=== PATIENT | female | born 1950 | race Two or more races ===

== ENCOUNTER 2023-02-23 08:22 | Inpatient (IN) | payer OTHER ==
[~2023-02-23] VITALS: Ht 157.5 cm; Wt 88.5 kg
[2023-02-24] MEDS ORDERED: MICARDIS80 MG PO (13:56)
[2023-02-24] MEDS ORDERED: FARXIGA10 MG PO (13:57)
[2023-02-24] MEDS ORDERED: SYNTHROID88 MCG PO (13:57)
[2023-02-24] MEDS ORDERED: GLUMETZA500 MG PO (13:57)
[2023-02-24] MEDS ORDERED: NORVASC5 MG PO (13:58)
[2023-02-24] MEDS ORDERED: CARDURA XL4 MG PO (13:58)
[2023-03-01 15:10] LABS: HEMATOCRIT 42.5 % (36.0-45.00); HEMOGLOBIN 13.8 g/dL (12.0-15.00); MEAN CELL VOLUME 79.4 fL (80.00-100.00); MEAN CORPUSCULAR HEMOGLOBIN 25.9 pg (27.00-32.0); MEAN CORPUSCULAR HGB CONC 32.6 g/dl (32.0-36.0); PLATELET COUNT 164 K/uL (150-450); RED BLOOD COUNT 5.35 M/uL (4.00-6.00); RED CELL DISTRIBUTION WIDTH 16.2 % (11.5-14.5)
[2023-03-01 15:25] LABS: ALBUMIN 3.8 gm/dL (3.4-5.0); CALCIUM 8.4 mg/dL (8.5-10.1); CREATININE SERUM 0.68 mg/dL (0.55-1.02); GFR 85.29; MAGNESIUM 2.3 mg/dL (1.8-2.4); PHOSPHOROUS 3.7 mg/dL (2.5-4.9); POTASSIUM 3.66 mEq/L (3.5-5.1)
[2023-03-02 06:23] LABS: HEMATOCRIT 38.2 % (36.0-45.00); HEMOGLOBIN 12.8 g/dL (12.0-15.00); MEAN CELL VOLUME 78.8 fL (80.00-100.00); MEAN CORPUSCULAR HEMOGLOBIN 26.4 pg (27.00-32.0); MEAN CORPUSCULAR HGB CONC 33.5 g/dl (32.0-36.0); PLATELET COUNT 149 K/uL (150-450); RED BLOOD COUNT 4.85 M/uL (4.00-6.00); RED CELL DISTRIBUTION WIDTH 16.2 % (11.5-14.5)
[2023-03-02 07:04] LABS: ALBUMIN 3.2 gm/dL (3.4-5.0); CREATININE SERUM 0.59 mg/dL (0.55-1.02); GFR 100.48; MAGNESIUM 2.3 mg/dL (1.8-2.4); PHOSPHOROUS 2.7 mg/dL (2.5-4.9); POTASSIUM 3.98 mEq/L (3.5-5.1)
[2023-03-04] MEDS ORDERED: HYOSCYAMINE0.125 M1 SL (10:42)
[2023-03-04] MEDS ORDERED: INTESTINEX680 M1 PO (10:43)
[2023-03-04] MEDS ORDERED: PEPCID AC20 MG PO (10:43)
[2023-03-04] MEDS ORDERED: TRAM1TAB98 PO (10:44)
== END 2023-03-04 11:23 | disposition home or self-care (01) | DRG 330 ==
LOC: SURH 03-01 05:50 → O/R 03-01 05:50 → SURG 03-01 09:00 → SURH 03-01 11:53
PROVIDERS: ADMIT Surgery; ATTEND Surgery
PROC: 07BB4ZZ Excision of Mesenteric Lymphatic, Percutaneous Endoscopic Approach (ICD-10-PCS; 2023-03-01)
PROC: 0DTF4ZZ Resection of Right Large Intestine, Percutaneous Endoscopic Approach (ICD-10-PCS; principal; 2023-03-01 09:00)
DX: C18.0 Malignant neoplasm of cecum (principal); C18.2 Malignant neoplasm of ascending colon; R19.5 Other fecal abnormalities; R59.0 Localized enlarged lymph nodes; I11.9 Hypertensive heart disease without heart failure; E11.9 Type 2 diabetes mellitus without complications; E03.9 Hypothyroidism, unspecified; Z79.84 Long term (current) use of oral hypoglycemic drugs